=== PATIENT | female | born 1950 | race Caucasian/White ===

== ENCOUNTER → 2020-06-27 | Outpatient (CLI) | payer MEDICARE, BC ==
[~2020-06-27] MED LIST: ATOR10 PO; CALCIUM 600 +1 EA11 PO; FAMO10; MULTI-VITAMIN1 EAC2 PO
[2020-06-27 15:11] LABS: Adenovirus F 40/41 Not Detected (NOT DETECT); Campylobacter Sp Not Detected (NOT DETECT); Cryptosporidium Not Detected (NOT DETECT); Cyclospora Cayetanensis Not Detected (NOT DETECT); E. Coli O157 Not Detected (NOT DETECT); Entamoeba Histolytica Not Detected (NOT DETECT); Enteroaggregative E. coli-EAEC Not Detected (NOT DETECT); Enteropathogenic E. coli-EPEC Not Detected (NOT DETECT); Enterotoxigenic E. coli-ETEC Not Detected (NOT DETECT); Giardia Lamblia Not Detected (NOT DETECT); Plesiomonas Shigelloides Not Detected (NOT DETECT); Salmonella Sp Not Detected (NOT DETECT); Shiga Toxin-prod E. coli-STEC Not Detected (NOT DETECT); Shigella/Enteroin E. coli-EIEC Not Detected (NOT DETECT); Vibrio Cholerae Not Detected (NOT DETECT); Vibrio Sp Not Detected (NOT DETECT); Yersinia Enterocolitica Not Detected (NOT DETECT)
[2020-06-27 15:12] LABS: Astrovirus Not Detected (NOT DETECT); Norovirus GI/GII Not Detected (NOT DETECT); Rotavirus A Not Detected (NOT DETECT); Sapovirus Not Detected (NOT DETECT)
== END | disposition home or self-care (01) ==
LOC: LAB 08:57 → LAB SHORT 08:57 → LAB FUT 06-19 14:00 → EDSTATUS 06-19 14:00
PROVIDERS: Internal Medicine Gastroenterology
DX: R19.7 Diarrhea, unspecified (principal)
CPT/HCPCS: 0097U

== ENCOUNTER 2020-07-18 07:33 | Day surgery (SDC) | payer MEDICARE, BC ==
[~2020-07-18] VITALS: Ht 160 cm; Wt 67.2 kg
== END 2020-07-18 09:44 | disposition home or self-care (01) ==
LOC: ORSCSDS 07:33
PROVIDERS: Internal Medicine Gastroenterology
PROC: 0DBE8ZX Excision of Large Intestine, Via Natural or Artificial Opening Endoscopic, Diagnostic (ICD-10-PCS; principal; 2020-07-18 09:00)
DX: Z12.11 Encounter for screening for malignant neoplasm of colon (principal); Z86.010 Personal history of colon polyps; K52.831 Collagenous colitis; Z79.899 Other long term (current) drug therapy
CPT/HCPCS: 88305; J0330; J0461; J2405; J2704; J7120

== ENCOUNTER 2023-12-27 03:14 | Emergency (ER) | payer MEDICARE, BC ==
[~2023-12-27] VITALS: Ht 160 cm; Wt 69.0 kg
[2023-12-27 03:23] VITALS: BP 171/97
[2023-12-27] MEDS ORDERED: PredniSONE 20 MG Tab PO ONE (03:40)
[2023-12-27] MEDS ORDERED: Prednisone20 MG PO (03:40)
== END 2023-12-27 03:46 | disposition home or self-care (01) ==
LOC: ER 03:14
DX: L23.7 Allergic contact dermatitis due to plants, except food (principal); Z79.899 Other long term (current) drug therapy
CPT/HCPCS: 99283; J7512